=== PATIENT | female | born 1985 | race Caucasian/White ===

== ENCOUNTER 2017-11-02 08:03 | Emergency (ER) | payer SELFPAY ==
[~2017-11-02] VITALS: Ht 160 cm; Wt 53.0 kg
[~2017-11-02 08:03] MED LIST: LORT5TAB PO; MACR100C PO; NAPR550 PO; Z.0.NO CURRENT MEDS
[2017-11-02 08:06] VITALS: BP 152/86; PULSE 89; RESP 12; TEMP 98.2; O2SAT 99
--- NOTE | 2017-11-02 08:33 | PD ---
HPI Chief Complaint: Chief Specialist Leed Problem/Complaint Time Seen by Provider: 08:12 Travel History International Travel<30 days: No Contact w/Intl Traveler<30days: No Traveled to known affect area: No History of Present Illness HPI 32-year-old female reports her significant other has had an STD. She denies discharge or pain. No fever chills. Location . Timing constant. No fever. Time since potential exposure < 24 hours. PFSH Past Medical History ADHD: Yes Bipolar Disorder: Yes Depression: Yes Diminished Hearing: No Gastrointestinal Disorders: No Musculoskeletal: Yes (CERVICAL FX 2008) Immunizations Current: Yes Tetanus Vaccination: > 5 Years Influenza Vaccination: No ?: Not LMP: 10/15/17 : 0 Para: 0 Past Surgical History Other Surgery: Yes (BROKEN NECK LAST YEAR NO SURGERY) Social History Alcohol Use: No Tobacco Use: Yes (09/17 PPD) Substance Use: No (pt denies) Allergies-Medications (Allergen,Severity, Reaction): Coded Allergies: amoxicillin (Verified Allergy, Intermediate, SKIN RASH, 11/02/17) erythromycin base (Verified Allergy, Unknown, hives, 11/02/17) Reported Meds & Prescriptions Reported Meds & Active Scripts Active No Active Prescriptions or Reported Medications Review of Systems Except as stated in HPI: all other systems reviewed are Neg Physical Exam Narrative GENERAL: Well-nourished well-developed no acute distress SKIN: Warm and dry. HEAD: Atraumatic. Normocephalic. EYES: Pupils equal and round. No scleral icterus. No injection or drainage. ENT: No nasal bleeding or discharge. Mucous membranes pink and moist. NECK: Trachea midline. No JVD. CARDIOVASCULAR: Regular rate and rhythm. RESPIRATORY: No accessory muscle use. Clear to auscultation. Breath sounds equal bilaterally. GASTROINTESTINAL: Abdomen soft, non-tender, nondistended. Hepatic and splenic margins not palpable. MUSCULOSKELETAL: Extremities without clubbing, cyanosis, or edema. No obvious deformities. NEUROLOGICAL: Awake and alert. No obvious cranial nerve deficits. Motor grossly within normal limits. Five out of 5 muscle strength in the arms and legs. Normal speech. PSYCHIATRIC: Appropriate mood and affect; insight and judgment normal. Data Data Last Documented VS Vital Signs Date Time Temp Pulse Resp B/P (MAP) Pulse Ox O2 Delivery O2 Flow Rate FiO2 11/02/17 08:15 15 11/02/17 08:06 98.2 89 152/86 (108) 99 MDM Medical Decision Making Medical Screen Exam Complete: Yes Emergency Medical Condition: Yes Medical Record Reviewed: Yes Differential Diagnosis IUP, UTI, ectopic , ov torsion, appendicitis, TOA, cervicitis, BV, Trichomoniasis, ov cyst, hernia, mittelschmerz, pain from menstruation Narrative Course Empiric coverage given here Diagnosis Primary Impression: Potential exposure to STD Referrals: [facility] 2 days Med/Other Pt SpecificInfo: No Change to Meds Scripts No Active Prescriptions or Reported Meds Disposition: 01 DISCHARGE HOME Condition: Stable Iglesia Coyne MD Nov 02, 2017 08:33
[2017-11-02] MEDS ORDERED: DOXY100C PO (08:35)
[2017-11-02] MEDS ORDERED: cefTRIAXone 250 MG VIAL IM ONE (08:45)
[2017-11-02] MEDS ORDERED: metroNIDAZOLE 500 MG TAB PO ONE (08:45)
[2017-11-02] MEDS ORDERED: DOXYCYCLINE HYCLATE 100 MG TAB PO ONE (08:45)
[2017-11-02 08:50] VITALS: BP 122/77; TEMP 97.8
== END 2017-11-02 08:50 | disposition home or self-care (01) ==
LOC: NEPC 08:03
DX: Z20.2 Contact with and (suspected) exposure to infections with a predominantly sexual mode of transmission (principal); F90.9 Attention-deficit hyperactivity disorder, unspecified type; F31.9 Bipolar disorder, unspecified; F32.9 Major depressive disorder, single episode, unspecified; F17.200 Nicotine dependence, unspecified, uncomplicated; Z88.0 Allergy status to penicillin; Z88.1 Allergy status to other antibiotic agents
CPT/HCPCS: 96372; 99283; J0696